=== PATIENT | female | born 1985 | race Caucasian/White ===

== ENCOUNTER → 2021-09-03 | Outpatient (CLI) | payer OTHER ==
[2021-09-03 09:21] LABS: HEMOGLOBIN 12.8 gm/dl (12.3-15.3); RED BLOOD COUNT 4.55 M/UL (4.00-5.10); WHITE BLOOD COUNT 5.6 K/UL (4.5-11.0)
[2021-09-03 10:13] LABS: BUN/CREATININE RATIO 29 (0-10)
== END ==
LOC: LAB 08:12
PROVIDERS: Nurse Practitioner
DX: R07.82 Intercostal pain (principal); R06.02 Shortness of breath; R53.83 Other fatigue; M25.512 Pain in left shoulder
CPT/HCPCS: 36415; 71111; 73030; 80053; 85025; 93005